=== PATIENT | female | born 1955 | race Caucasian/White ===

== ENCOUNTER 2016-05-14 14:00 | Outpatient (CLI) | payer BC, OTHER | END 2016-05-14 14:01 | disposition home or self-care (01) | DX: Z00.00 Encounter for general adult medical examination without abnormal findings (principal); E03.9 Hypothyroidism, unspecified; Z79.899 Other long term (current) drug therapy; E78.2 Mixed hyperlipidemia ==

== ENCOUNTER 2017-08-05 08:28 | Outpatient (CLI) | payer BC, OTHER ==
[2017-08-05 13:50] LABS: THYROID STIMULATING HORMONE 3.6 uIU/mL (0.34-5.60)
[2017-08-05 13:52] LABS: FREE T4 (FREE THYROXINE) 0.89 ng/dL (0.58-1.64)
== END 2017-08-05 08:29 | disposition home or self-care (01) ==
LOC: LAB.R 08:28
PROVIDERS: ATTEND Internal Medicine
DX: E03.9 Hypothyroidism, unspecified (principal); Z79.899 Other long term (current) drug therapy
CPT/HCPCS: 84439; 84443; 84481

== ENCOUNTER 2017-09-15 10:00 | Outpatient (CLI) | payer BC ==
[2017-09-15 14:02] LABS: BASOPHILS # (AUTO) 0.1 10^3/uL (0.0-0.1); BASOPHILS % (AUTO) 1.1 %; EOSINOPHILS # (AUTO) 0.2 10^3/uL (0.0-0.7); HGB - HEMOGLOBIN 12.5 g/dL (12.0-16.0); LYMPHOCYTES # (AUTO) 1.9 10^3/uL (1.5-3.5); LYMPHOCYTES % (AUTO) 29.5 %; MEAN CORPUSCULAR HEMOGLOBIN 30.5 pg (27.0-31.0); MEAN CORPUSCULAR HGB CONC 33.2 g/dL (32.0-36.0); MEAN CORPUSCULAR VOLUME 91.9 fL (81.0-99.0); MEAN PLATELET VOLUME 7.4 fL (7.9-10.8); MONOCYTES # (AUTO) 0.4 10^3/uL (0.0-1.0); MONOCYTES % (AUTO) 6.2 %; NEUTROPHILS # (AUTO) 3.9 10^3/uL (1.5-6.6); NEUTROPHILS % (AUTO) 60.2 %; PLT - PLATELET COUNT 340 10^3/uL (130-450); RED BLOOD COUNT 4.09 10^6/uL (4.20-5.40); RED CELL DISTRIBUTION WIDTH 13.7 % (12.0-15.0); WHITE BLOOD COUNT 6.5 x10^3/uL (4.8-10.8)
[2017-09-15 14:34] LABS: ALBUMIN 3.8 g/dL (3.2-5.5); ALBUMIN/GLOBULIN RATIO 1.2 (1.0-2.2); ALKALINE PHOSPHATASE 72 IU/L (42-121); ALT ALANINE AMINOTRANSFERASE 26 IU/L (10-60); AST ASPARTATE AMINOTRANSFERASE 20 IU/L (10-42); BILIRUBIN,TOTAL 0.6 mg/dL (0.2-1.0); BUN - BLOOD UREA NITROGEN 21 mg/dL (6-20); CALCIUM 9.3 mg/dL (8.5-10.3); CARBON DIOXIDE - CO2 27 mmol/L (21-32); CHLORIDE 102 mmol/L (101-111); CHOL/HDL RATIO 4.7 (<4.4); CHOLESTEROL 285 mg/dL; CREATININE 0.7 mg/dL (0.4-1.0); GFR - MDRD 85 (>89); GLUCOSE 95 mg/dL (70-100); HDL CHOLESTEROL 61 mg/dL; LDL CHOLESTEROL,CALCULATED 195 mg/dL; LDL/HDL RATIO 3.2 (<4.4); SODIUM 135 mmol/L (135-145); VLDL CHOLESTEROL 29 mg/dL
[2017-09-16 14:03] LABS: HEPATITIS C ANTIBODY NON-REACTIVE (NON-REACTIVE)
== END 2017-09-15 10:01 | disposition home or self-care (01) ==
LOC: LAB.R 10:00
PROVIDERS: ATTEND Physician Assistant Medical
DX: Z00.00 Encounter for general adult medical examination without abnormal findings (principal); Z72.89 Other problems related to lifestyle; E78.2 Mixed hyperlipidemia
CPT/HCPCS: 80053; 80061; 83721; 85025; 86803

== ENCOUNTER 2017-09-29 14:14 | Outpatient (CLI) | payer BC ==
--- NOTE | 2017-09-29 16:52 | DEXA Report ---
Procedure Date: 09/29/2017 Accession Number: [id number] / [id number] Procedure: DEX - Dexa Spine and/or Hip CPT Code: FULL RESULT: EXAM: Dexa Spine and/or Hip DATE: 09/29/2017 3:32 PM CLINICAL HISTORY: POSTMENOPAUSAL TECHNIQUE: Dual energy x-ray absorptiometry (DXA) was performed on a [employer] System. Regions measured are the AP Spine, femoral neck, and if needed forearm. COMPARISON: None. In accordance with the International Society for Clinical Densitometry (ISCD) guidelines, data from previous exams may be reanalyzed using current recommendations and techniques. This is done to allow a more accurate basis for comparison with the current study. FINDINGS: The data for the lumbar spine is as follows: BMD (g/cm/cm) T-SCORE Z-SCORE REGION L1 0.880 -2.1 -1.2 L2 0.889 -2.6 -1.7 L3 0.928 -2.3 -1.4 L4 0.918 -2.3 -1.5 TOTAL 0.906 -2.3 -1.4 NOTE: All evaluable vertebrae are used for classification this DEXA scan was performed of only 1 anatomic area due to the patient's bilateral hip replacement. Future examinations should be performed of the wrist as well as the lumbar spine for increased accuracy. IMPRESSION: THE WHO CLASSIFICATION BASED ON THE INTERNATIONAL REFERENCE STANDARD IS OSTEOPENIA. THE FRACTURE RISK IS INCREASED. RECOMMENDATION: Patients with diagnosis of osteoporosis or osteopenia should have regular bone mineral density assessment. For those eligible for Medicare, routine testing is allowed once every 2 years. Testing frequency can be increased for patients who have rapidly progressing disease or for those who are receiving medical therapy to restore bone mass. COMMENT: World Health Organization (WHO) definitions for osteoporosis and osteopenia: NORMAL BMD: T-score at -1.0 or higher, fracture risk is low OSTEOPENIA BMD: T-score between -1.0 and -2.5, fracture risk is increased. OSTEOPOROSIS BMD: T-score at -2.5 or lower, fracture risk is high. National Osteoporosis Foundation recommends: 1. Obtain adequate dietary calcium (at least 1200 mg per day) and vitamin D (400-800 international units per day). 2. Participate, as appropriate, in regular weightbearing and muscle-strengthening exercise. 3. Avoid tobacco use and reduce alcohol and caffeine intake. 4. For more detailed information see the website at www.NOF.org.
== END 2017-09-29 14:15 | disposition home or self-care (01) ==
LOC: DI 14:14
PROVIDERS: ATTEND Physician Assistant Medical
DX: M85.88 Other specified disorders of bone density and structure, other site (principal)
CPT/HCPCS: 77080

== ENCOUNTER 2017-09-29 14:30 | Outpatient (CLI) | payer BC ==
--- NOTE | 2017-09-30 11:23 | Mammography Report ---
Procedure Date: 09/29/2017 Accession Number: [id number] / [id number] Procedure: ESSENCE - Screening Mammo Dig Bilat CPT Code: FULL RESULT: EXAM: Screening Mammo Dig Bilat DATE: 09/29/2017 2:47 PM CLINICAL HISTORY: 61-year-old female with history of left-sided biopsy and lumpectomy with benign results in 1998 and a family history of breast cancer in an aunt in her 40s. TECHNIQUE: Bilateral CC and MLO views were obtained. COMPARISON: 03/30/2014, 12/06/2011, 07/13/2011, 11/15/2008. FINDINGS: The breasts demonstrate diffuse fatty replacement bilaterally. Typically benign large rodlike and coarse calcifications are seen in the right breast. The left breast demonstrates typically benign round calcifications. No suspicious masses, clustered microcalcifications, or regions of architectural distortion are identified. IMPRESSION: Benign findings RECOMMENDATION: Routine annual screening unless otherwise clinically indicated. BIRADS CATEGORY 2: Benign findings STANDARD QUALIFYING STATEMENTS: 1. This examination was reviewed with the aid of Computer-Aided Detection (CAD). 2. A negative or benign imaging report should not delay biopsy if clinically suspicious findings are present. Consider surgical consultation if warrented. More than 5% of cancers are not identified by imaging. 3. Dense breasts may obscure an underlying neoplasm.
== END 2017-09-29 14:31 | disposition home or self-care (01) ==
LOC: DI 14:30
PROVIDERS: ATTEND Physician Assistant Medical
DX: Z12.31 Encounter for screening mammogram for malignant neoplasm of breast (principal); Z80.3 Family history of malignant neoplasm of breast
CPT/HCPCS: 77067

== ENCOUNTER 2017-10-10 08:21 | Outpatient (CLI) | payer BC ==
--- NOTE | 2017-10-12 14:07 | Ultrasound Report ---
Procedure Date: 10/10/2017 Accession Number: [id number] / [id number] Procedure: US - Head or Neck Soft Tissue CPT Code: FULL RESULT: EXAM: THYROID ULTRASOUND EXAM DATE: 10/10/2017 09:07 AM. CLINICAL HISTORY: Postmenopausal. Corina's thyroiditis. Multinodular goiter. Follow-up. COMPARISON: 05/13/2008. 09/04/2007. TECHNIQUE: Real time sonographic imaging of the thyroid was performed by the shellfish farming supervisor. Multiple brewery representative static images were saved for review. FINDINGS: THYROID GLAND: Right Lobe: 5.6 x 3.5 x 3.4 cm, volume 34 cc. Diffusely heterogeneous and multilobular. Mild vascularity. Right Lobe Nodules: Lobular/nodular in appearance without a distinct nodule. Left Lobe: 6.1 x 3.9 x 3.2 cm, volume 39 cc. Diffusely heterogeneous and multilobular. Mild vascularity. Left Lobe Nodules: Lobular/nodular appearance without a distinct nodule. Isthmus: 1.0 cm AP. Isthmic Nodules: 1. Hypoechoic 0.8 x 0.7 x 0.6 cm cystic. LYMPH NODES: No adenopathy demonstrated in the central or lateral compartment. OTHER: None. IMPRESSION: 1. Enlarged diffusely heterogeneous multilobular thyroid gland without a distinct nodule well delineated except in the isthmus measuring 0.8 cm. Mild vascularity seen throughout the gland. Findings may be the result of the patient's history of thyroiditis. Management recommendations are based on 2015 [place] [employer] Management Guidelines for Adult Patients with Thyroid Nodules and Differentiated Thyroid Cancer. [employer]
== END 2017-10-10 08:22 | disposition home or self-care (01) ==
LOC: DI 08:21
PROVIDERS: ATTEND Physician Assistant Medical
DX: E04.1 Nontoxic single thyroid nodule (principal); E06.3 Autoimmune thyroiditis
CPT/HCPCS: 76536

== ENCOUNTER 2017-10-13 09:42 | Outpatient (CLI) | payer BC ==
--- NOTE | 2017-10-13 12:54 | DEXA Report ---
Procedure Date: 10/13/2017 Accession Number: [id number] / [id number] Procedure: DEX - Dexa Forearm CPT Code: FULL RESULT: EXAM: Dexa Forearm DATE: 10/13/2017 10:18 AM CLINICAL HISTORY: OSTEOPENIA,VARICOSE VEINS OF BILATERAL LEGS TECHNIQUE: Dual energy x-ray absorptiometry (DXA) was performed on a [employer] System. Regions measured are the AP Spine, femoral neck, and if needed forearm. COMPARISON: DEXA of the spine 09/29/2017. In accordance with the International Society for Clinical Densitometry (ISCD) guidelines, data from previous exams may be reanalyzed using current recommendations and techniques. This is done to allow a more accurate basis for comparison with the current study. The data for the left forearm is as follows: BMD (g/cm/cm) T-SCORE Z-SCORE REGION 1/3 0.811 -0.7 0.3 NOTE: The 33% radius of the nondominant forearm is used for classification. IMPRESSION: THE WHO CLASSIFICATION BASED ON THE INTERNATIONAL REFERENCE STANDARD IS NORMAL FOR THE FOREARM IN ISOLATION. TAKING INTO ACCOUNT THE DEXA EXAMINATION OF THE SPINE 09/29/2017, THIS PATIENT SHOULD BE CONSIDERED OSTEOPENIC WITH AN INCREASED FRACTURE RISK. RECOMMENDATION: Patients with diagnosis of osteoporosis or osteopenia should have regular bone mineral density assessment. For those eligible for Medicare, routine testing is allowed once every 2 years. Testing frequency can be increased for patients who have rapidly progressing disease or for those who are receiving medical therapy to restore bone mass. COMMENT: World Health Organization (WHO) definitions for osteoporosis and osteopenia: NORMAL BMD: T-score at -1.0 or higher, fracture risk is low OSTEOPENIA BMD: T-score between -1.0 and -2.5, fracture risk is increased. OSTEOPOROSIS BMD: T-score at -2.5 or lower, fracture risk is high. National Osteoporosis Foundation recommends: 1. Obtain adequate dietary calcium (at least 1200 mg per day) and vitamin D (400-800 international units per day). 2. Participate, as appropriate, in regular weightbearing and muscle-strengthening exercise. 3. Avoid tobacco use and reduce alcohol and caffeine intake. 4. For more detailed information see the website at www.NOF.org.
== END 2017-10-13 09:43 | disposition home or self-care (01) ==
LOC: DI 09:42
PROVIDERS: ATTEND Physician Assistant Medical
DX: M85.832 Other specified disorders of bone density and structure, left forearm (principal); I83.93 Asymptomatic varicose veins of bilateral lower extremities; Z78.0 Asymptomatic menopausal state; Z96.643 Presence of artificial hip joint, bilateral
CPT/HCPCS: 77081

== ENCOUNTER 2018-10-17 08:00 | Outpatient (CLI) | payer BC ==
[2018-10-17 12:30] LABS: BASOPHILS % (AUTO) 0.6 %; EOSINOPHILS # (AUTO) 0.3 10^3/uL (0.0-0.7); EOSINOPHILS % (AUTO) 3.8 %; HGB - HEMOGLOBIN 12.3 g/dL (12.0-16.0); LYMPHOCYTES # (AUTO) 2.1 10^3/uL (1.5-3.5); LYMPHOCYTES % (AUTO) 32.3 %; MEAN CORPUSCULAR HEMOGLOBIN 29.5 pg (27.0-31.0); MEAN CORPUSCULAR HGB CONC 31.7 g/dL (32.0-36.0); MEAN PLATELET VOLUME 9.4 fL (7.9-10.8); MONOCYTES # (AUTO) 0.4 10^3/uL (0.0-1.0); MONOCYTES % (AUTO) 6.3 %; NEUTROPHILS # (AUTO) 3.7 10^3/uL (1.5-6.6); NEUTROPHILS % (AUTO) 56.7 %; PLT - PLATELET COUNT 324 10^3/uL (130-450); RED BLOOD COUNT 4.17 10^6/uL (4.20-5.40); WHITE BLOOD COUNT 6.5 x10^3/uL (4.8-10.8)
[2018-10-17 12:57] LABS: ALBUMIN 4.3 g/dL (3.2-5.5); ALBUMIN/GLOBULIN RATIO 1.7 (1.0-2.2); ALKALINE PHOSPHATASE 65 IU/L (42-121); ALT ALANINE AMINOTRANSFERASE 21 IU/L (10-60); AST ASPARTATE AMINOTRANSFERASE 19 IU/L (10-42); BILIRUBIN,TOTAL 0.5 mg/dL (0.2-1.0); BUN - BLOOD UREA NITROGEN 23 mg/dL (6-20); CALCIUM 9.3 mg/dL (8.5-10.3); CARBON DIOXIDE - CO2 24 mmol/L (21-32); CHLORIDE 104 mmol/L (101-111); CHOL/HDL RATIO 4.4 (<4.4); CHOLESTEROL 256 mg/dL; CREATININE 0.6 mg/dL (0.4-1.0); GFR - MDRD 101 (>89); GLUCOSE 101 mg/dL (70-100); HDL CHOLESTEROL 58 mg/dL; LDL CHOLESTEROL,CALCULATED 173 mg/dL; SODIUM 139 mmol/L (135-145); TOTAL PROTEIN 6.9 g/dL (6.7-8.2); VLDL CHOLESTEROL 25 mg/dL
== END 2018-10-17 23:59 | disposition home or self-care (01) ==
LOC: LAB.N 08:00
PROVIDERS: ATTEND Nurse Practitioner
DX: I10 Essential (primary) hypertension (principal); E78.5 Hyperlipidemia, unspecified; E06.3 Autoimmune thyroiditis
CPT/HCPCS: 36415; 80053; 80061; 83721; 84443; 85025